=== PATIENT | female | born 1965 | race Asian ===

== ENCOUNTER 2025-01-29 08:38 | Day surgery (SDC) | payer OTHER ==
[2025-01-22 16:04] VITALS: BMI 24.7
[2025-01-29] MEDS ORDERED: PROPOFOL 160 ML ONE (10:22)
[2025-01-29 11:10] VITALS: PULSE 80; TEMP 97.8
[2025-01-29 11:12] VITALS: BP 102/55; RESP 19
== END 2025-01-29 11:05 | disposition home or self-care (01) ==
LOC: EDSEX 08:38 → FASU-ENDO 08:38
PROVIDERS: ATTEND Internal Medicine Gastroenterology
PROC: 0DJD8ZZ Inspection of Lower Intestinal Tract, Via Natural or Artificial Opening Endoscopic (ICD-10-PCS; principal; 2025-01-29 10:25)
DX: Z12.11 Encounter for screening for malignant neoplasm of colon (principal); K64.8 Other hemorrhoids; K64.4 Residual hemorrhoidal skin tags
CPT/HCPCS: 82962